=== PATIENT | male | born 1985 | race Caucasian/White ===

== ENCOUNTER 2023-10-24 08:05 | Emergency (ER) | payer OTHER, SELFPAY ==
[2023-10-24] VITALS (7 sets, daily range): BP systolic 122–135; BP diastolic 68–89; PULSE 85–110; RESP 16; TEMP 36.7; O2SAT 99–100; BMI 23.2
[2023-10-24] MEDS: ONDANSETRON 4MG ODT 4 MG SL (08:31)
[2023-10-24] MEDS: IBUPROFEN 600 MG TABLET PO (08:31)
[2023-10-24] MEDS: ACETAMINOPHEN 500MG TAB 1000 MG PO (08:31)
--- NOTE | 2023-10-24 08:32 | ED_ITS ---
Discharge Plan Disposition Patient Disposition: Home, Self-Care Chief Complaint: PAIN Referrals Follow up/Referrals: Provider,Referral, MD [Primary Care Provider] - See instructions Activity Restrictions/Add. Instructions Additional Instructions/Restrictions: Call your family doctor to establish care for this visit to the emergency department and schedule follow-up within 48 hours to ensure improvement. If you have any worsening of your condition or any other concerning signs or symptoms, return to the emergency department or your primary care doctor for further evaluation. Clinical Impressions Clinical Impression: Acute dehydration Print Language Print Language: Kinyarwanda Discharge ED Provider: Gary Villatoro General Adult HPI General Chief complaint: PAIN Stated complaint: unable to urinate Time Seen by Provider: 10/24/23 08:16 Mode of Arrival: Ambulatory Source of Information: Patient Limitations: No Limitations Description of Symptoms (Recalled from ER Triage Doc. by RN): Patient reports feeling like pins and needles throughout his body and not urinating as much. History of Present Illness HPI narrative: Please note that above description of symptoms, in this electronic medical record under categorization of recalled from ER triage doctor by RN are reflective of an initial nursing assessment, however, is not reflective of my full history and physical exam that was personally taken and clarified. Consequentially, this preceding description of symptoms, which may include the patient's categorized chief complaint in the EMR, do not reflect my personal clinical impression, and the ultimate description of history of present illness and patient stated complaints should be deferred to this section of the note. Unless stated otherwise or congruent with this section of the note, additional signs, symptoms, or incongruence should be interpreted as inaccurate with my clinical impression. Related Data Allergies Allergy/AdvReac Type Severity Reaction Status Date / Time No Known Allergies Allergy Verified 10/24/23 08:14 [facility] Disclaimer: The information contained in this section may have been updated after the patient was seen, as this information can be updated by other users. Social History Smoking Status: Current every day smoker alcohol intake: never current occupational status: employed Travel in the last 8 weeks: None ROS Obtained: Yes All systems reviewed & no additional complaints except as documented Physical Exam General General appearance: alert and anxious Head Head exam: atraumatic and normocephalic Eye Eye exam: Present normal appearance, PERRL and EOMI ENT ENT exam: Present mucous membranes dry Neck Neck exam: Present normal inspection, full ROM and trachea midline Respiratory Respiratory exam: Absent respiratory distress, wheezes, stridor, accessory muscle use or prolonged expiratory phase Cardiovascular Cardiovascular exam: Present regular rate, normal rhythm and other (Pulses equal symmetric in upper and lower extremities) Abdominal Exam Abdominal exam: Present soft; Absent distention, tenderness, guarding, rebound or pulsatile mass Extremities Exam Extremities exam: Absent edema Back Exam Back exam: Present CVA tenderness (L); Absent CVA tenderness (R) Neurological Exam Neurological exam: Present alert, oriented X3 and CN II-XII intact; Absent motor sensory deficit Skin Skin exam: Present warm and dry; Absent diaphoresis or erythema Medical Decision Making Medical Records Medical records reviewed: Yes I reviewed the patient's medical records. Eleazar Inquiry Pt receiving controlled substance: No Eleazar was queried for this patient: No Vital Signs: 10/24/23 08:07 10/24/23 08:30 10/24/23 09:00 Temperature 98.0 F Temperature Source Oral Pulse Rate 96 H 91 H Pulse Rate [Radial] 110 H Respiratory Rate 16 Blood Pressure 128/79 135/86 Blood Pressure [Right Arm] 134/79 Blood Pressure Mean 95 98 Blood Pressure Mean [Right Arm] 97 Blood Pressure Source [Right Arm] Automatic Cuff Blood Pressure Position [Right Arm] Sitting 02 Sat by Pulse Oximetry 99 99 99 Oxygen Delivery Method Room Air Room Air 10/24/23 09:30 10/24/23 10:00 10/24/23 10:30 Temperature Temperature Source Pulse Rate 96 H 88 85 Pulse Rate [Radial] Respiratory Rate Blood Pressure 122/68 122/71 133/89 Blood Pressure [Right Arm] Blood Pressure Mean 86 85 Blood Pressure Mean [Right Arm] Blood Pressure Source [Right Arm] Blood Pressure Position [Right Arm] 02 Sat by Pulse Oximetry 99 99 100 Oxygen Delivery Method Room Air Room Air Room Air Lab Data Lab Results 10/24/23 11:01: Urine Color Yellow, Urine Appearance Clear, Urine pH 6.0, Ur Specific [place] 1.015, Urine Protein Negative, Urine Glucose (UA) Negative, Urine Ketones Negative, Urine Blood Negative, Urine Nitrate Negative, Urine Bilirubin Negative, Urine Urobilinogen 0.2, Ur Leukocyte Esterase Negative Orders (Tests/Meds): ED MEDICATIONS Discontinued Medications Generic Name Dose Route Start Last Admin Trade Name Freq PRN Reason Stop Dose Admin Acetaminophen 1,000 mg 10/24/23 08:19 08/20/24 08:31 Acetaminophen 500mg Tab PO 08/20/24 08:20 1,000 mg ONCE ONE Administration Belladonna Alkaloids 60 ml 10/24/23 11:00 10/24/23 11:44 Belladonna Alkaloids 60 Ml Ml PO 10/24/23 11:01 Not Given ONCE ONE Ibuprofen 600 mg 10/24/23 08:19 10/24/23 08:31 Ibuprofen 600 Mg Tablet PO 10/24/23 08:20 600 mg ONCE ONE Administration Ondansetron HCl 4 mg 10/24/23 08:19 10/24/23 08:31 Ondansetron 4mg Odt SL 10/24/23 08:20 4 mg ONCE ONE Administration ORDERS Category Date Time Status UA [Urinalysis and Microscopic] Stat Lab 10/24/23 11:01 Results Medical Decision Narrative: 37-year-old male no past medical history not on any medications presenting with multiple complaints. Patient states that his main complaint is his abdominal tightness. States that he feels like he has not been urinating as much as he usually does over the past couple of days. Usually he allegedly pees for 5 times a day, the last couple days he has only peed 2-3 times a day. No dysuria, hematuria, frequency or urgency. No loss of bladder continence, patient denies changes in stool including diarrhea or constipation. No fevers or chills. No nausea or vomiting. Patient states that he intermittently feels like his throat feels tight as well, but unsure if these things are related. History was obtained via conversation with patient. On arrival, patient hemodynamically stable, alert, oriented x4, appropriate, GCS 15, moving all extremities spontaneously, pupils equal and reactive to light. Full physical exam performed and significant for well-appearing male in no acute distress. He does appear anxious. Abdomen is soft, nontender, nondistended. He does have some left flank tenderness. No suprapubic fullness. Unremarkable physical exam overall. Differential includes UTI, nephrolithiasis, dehydration, among others. Patient was given Tylenol, Motrin, Zofran, p.o. challenge for symptomatic management and correction of underlying abnormalities. Initial workup was started with conservative approach urinalysis and workup independently interpreted and significant for normal UA, no evidence of blood or infection. On reevaluation, patient resting comfortably tolerating p.o. intake and able to urinate without issue. Given patient presentation, workup, history, this most likely represents dehydration. Less likely acute intra-abdominal abnormality given patient has different chief complaint with each provider. Also no acute distress, urinating without issue and very well-appearing. Because patient at baseline without signs or symptoms of clinical decompensation, deemed appropriate for discharge. Results were relayed to patient who voiced understanding and were agreeable to outpatient management and follow up. I discussed my clinical impression with patient and answered all questions. At this time, the evidence for any other entities in the differential is insufficient to warrant any further testing or ED observation. This was explained as well. Advisory was given that persistent or worsening symptoms require further evaluation. I confirmed the understanding of this discussion. [employer] disclaimer Much of this encounter note is an electronic pusher runner spoken language to printed text. Electronic pusher runner of the spoken language may permit errors. Although I have reviewed the note, some errors may still exist. Critical Care Critical Care Time Critical Care Time: No
--- NOTE | 2023-10-24 09:30 | PC.NURSE ---
pt provided with drinks
--- NOTE | 2023-10-24 10:36 | PC.NURSE ---
pt still saying he is unable to urinate at this time.
[2023-10-24 11:06] LABS: Microscopic, Urine URINE MICROSCOPIC (MICROSCOPIC)
[2023-10-24 11:17] LABS: Appearance,Urine CLEAR (Clear); Bilirubin,Urine Negative (Negative); Blood, Urine Negative (Negative); Color,Urine YELLOW (Yellow); Glucose,Urine (UA) Negative (Negative); Ketones,Urine Negative (Negative); Leukocyte Esterase,Urine Negative (Negative); Nitrate,Urine Negative (Negative); Protein,Urine Negative (Negative); Specific Gravity, Urine 1.015 (1.005-1.030); Urobilinogen,Urine 0.2 EU/dl (0.2)
== END 2023-10-24 12:07 | disposition home or self-care (01) ==
PROVIDERS: Emergency Provider Emergency Medicine
DX: E86.0 Dehydration (principal); R20.2 Paresthesia of skin
CPT/HCPCS: 81001; 99283; Q0162